=== PATIENT | female | born 1990 | race Caucasian/White ===

== ENCOUNTER → 2017-04-27 | Outpatient (CLI) | payer OTHER ==
[2017-04-27 15:09] LABS: BASO % 0.4 % (0.0-1.0); EOS # 0.1 K/mm3 (0.0-0.50); EOS % 1.2 % (0.0-3.0); LARGE UNSTAINED CELL # 0.1 K/mm3 (0.0-0.4); LARGE UNSTAINED CELL % 1.7 % (0.0-4.0); LYMPH # 2.6 K/mm3 (1.5-6.5); LYMPH % 46.8 % (24.0-44.0); MEAN CORPUSCULAR HEMOGLOBIN 28.9 pg (27.0-33.0); MEAN CORPUSCULAR HGB CONC 34.9 g/dl (32.0-36.5); MEAN CORPUSCULAR VOLUME 83.1 fl (80.0-96.0); MONO # 0.4 K/mm3 (0.0-0.8); MONO % 6.8 % (0.0-5.0); NEUTROPHILS # 2.3 K/mm3 (1.8-7.7); PLATELET COUNT, AUTOMATED 333 k/mm3 (150-450); RED CELL DISTRIBUTION WIDTH 12.6 % (11.5-14.5); WHITE BLOOD COUNT 5.3 K/mm3 (4.0-10.0)
[2017-04-27 15:37] LABS: LUTEINIZING HORMONE 17.9 mIU/mL
[2017-04-27 15:38] LABS: ALBUMIN 3.8 GM/DL (3.2-5.2); ALBUMIN/GLOBULIN RATIO 1.12 (1.00-1.93); ALKALINE PHOSPHATASE 78 U/L (45-117); ALT/SGPT 22 U/L (12-78); AST/SGOT 15 U/L (15-37); BILIRUBIN,DIRECT < 0.1 MG/DL (0.0-0.2); BILIRUBIN,TOTAL 0.4 MG/DL (0.2-1.0); CHOLESTEROL LEVEL 144 MG/DL (<200); FOLLICLE STIMULATING HORMONE 9.1 mIU/mL; TOTAL PROTEIN 7.2 GM/DL (6.4-8.2); TRIGLYCERIDES LEVEL 65 MG/DL (<150)
[2017-04-30 00:06] LABS: FREE ANDROGEN INDEX 3.3 (0.4-8.4); SEX HORM BINDING GLOB 64.4 nmol/L (24.6-122.0)
== END ==
LOC: M WUC 10:14
PROVIDERS: ATTEND Nurse Practitioner Adult Health
DX: N92.6 Irregular menstruation, unspecified (principal)

== ENCOUNTER → 2017-06-09 | Outpatient (REF) | payer OTHER ==
[2017-06-09 18:29] LABS: FREE T4 1.12 NG/DL (0.76-1.46)
== END ==
LOC: M SFHCLERA 10:58
PROVIDERS: ATTEND Family Medicine
DX: E05.90 Thyrotoxicosis, unspecified without thyrotoxic crisis or storm (principal)

== ENCOUNTER → 2017-06-09 | Outpatient (CLI) | payer BC, OTHER ==
--- NOTE | 2017-06-09 13:33 | REP ---
Thyroid ultrasound: The thyroid is normal size. The right lobe measures 4.0 x 1.3 x 1.57 inches. The left lobe measures 3.8 x 1.4 x 0.9 cm. The isthmus measures 2.8 mm in thickness. There is a 0.8 cm solid nodule at the mid pole of the right thyroid lobe. There is a 0.5 cm solid nodule in the upper pole of the left thyroid lobe. Impression: There is a solid nodule in each lobe of the thyroid. Consider radionuclide thyroid scan to determine if either of these nodules is hyperfunctioning. Signed by Timmy Salinas MD 06/09/2017 01:25 P
== END ==
LOC: M LRY 11:02
PROVIDERS: ATTEND Family Medicine
DX: E05.90 Thyrotoxicosis, unspecified without thyrotoxic crisis or storm (principal)

== ENCOUNTER → 2017-06-26 | Outpatient (CLI) | payer BC, OTHER ==
[2017-06-26 09:55] LABS: FREE T4 0.96 NG/DL (0.76-1.46)
[2017-06-26 11:45] LABS: THYROID PEROXIDASE ANTIBODY 33.5 U/ML (<60.0)
== END ==
LOC: M WUC 08:11
PROVIDERS: ATTEND Internal Medicine Endocrinology, Diabetes & Metabolism
DX: E04.1 Nontoxic single thyroid nodule (principal)

== ENCOUNTER → 2017-06-26 | Outpatient (CLI) | payer BC, OTHER ==
[2017-06-26 11:45] LABS: PROGESTERONE 32.3 NG/ML
[2017-06-26 11:57] LABS: ESTRADIOL 510.9 PG/ML
== END ==
LOC: M WUC 08:15
PROVIDERS: ATTEND Obstetrics & Gynecology Reproductive Endocrinology
DX: N97.9 Female infertility, unspecified (principal)

== ENCOUNTER → 2018-06-28 | Outpatient (CLI) | payer BC, OTHER ==
[2018-06-28 20:43] LABS: FREE T4 0.95 NG/DL (0.76-1.46)
== END ==
LOC: M LRY 16:07
DX: R94.6 Abnormal results of thyroid function studies (principal)
CPT/HCPCS: 84443

== ENCOUNTER → 2019-03-12 | Outpatient (CLI) | payer OTHER, BC ==
[2019-03-12 13:09] LABS: HEMATOCRIT 36.7 % (36.0-47.0); HEMOGLOBIN 10.9 g/dl (12.0-15.5); MEAN CORPUSCULAR HEMOGLOBIN 21.9 pg (27.0-33.0); MEAN CORPUSCULAR HGB CONC 29.7 g/dl (32.0-36.5); MEAN CORPUSCULAR VOLUME 73.7 fl (80.0-96.0); PLATELET COUNT, AUTOMATED 337 10^3/uL (150-450); RED BLOOD COUNT 4.98 10^6/uL (4.00-5.40); WHITE BLOOD COUNT 6.5 10^3/uL (4.0-10.0)
[2019-03-12 13:22] LABS: ALBUMIN 3.6 GM/DL (3.2-5.2); ALT/SGPT 17 U/L (12-78); BILIRUBIN,TOTAL 0.3 MG/DL (0.2-1.0); BLOOD UREA NITROGEN 9 MG/DL (7-18); CALCIUM LEVEL 8.6 MG/DL (8.5-10.1); CARBON DIOXIDE LEVEL 26 MEQ/L (21-32); CHLORIDE LEVEL 107 MEQ/L (98-107); CREATININE FOR GFR 0.65 MG/DL (0.55-1.30); GLOMERULAR FILTRATION RATE > 60.0 (>60); GLUCOSE, FASTING 104 MG/DL (70-100); HCG, SERUM QUANTITATIVE < 1.0 MIU/ML; POTASSIUM SERUM 3.8 MEQ/L (3.5-5.1); SODIUM LEVEL 141 MEQ/L (136-145); THYROID STIMULATING HORMONE 0.946 uIU/ML (0.358-3.740); TOTAL PROTEIN 7.2 GM/DL (6.4-8.2)
[2019-03-12 13:26] LABS: HEMOGLOBIN A1c 5.9 %
[2019-03-14 10:35] LABS: TOTAL 25(OH) VITAMIN D 16.9 NG/ML (30.0-100.0)
[2019-03-14 10:36] LABS: PROGESTERONE 0.21 NG/ML; TESTOSTERONE 18 NG/DL (14-76)
[2019-03-14 10:46] LABS: RUBELLA IgG QUALITATIVE IMMUNE (IMMUNE)
[2019-03-14 11:15] LABS: HEPATITIS C VIRUS ABY INDEX 0.1 INDEX (<0.8)
[2019-03-14 11:48] LABS: LUTEINIZING HORMONE 5.6 mIU/mL; PROLACTIN 6.2 NG/ML
[2019-03-14 11:49] LABS: ESTRADIOL 39.9 PG/ML
[2019-03-14 12:01] LABS: HEPATITIS B SURFACE ANTIGEN NEGATIVE (NEGATIVE)
[2019-03-14 12:29] LABS: HIV 1&2 SCREEN CENTAUR NEGATIVE (NEGATIVE)
[2019-03-15 14:24] LABS: HERPES ZOSTER, VARICELLA IgM 1.29 index (0.00-0.90)
== END ==
LOC: M WUC 10:49
PROVIDERS: ATTEND Obstetrics & Gynecology Reproductive Endocrinology
DX: E28.9 Ovarian dysfunction, unspecified (principal)

== ENCOUNTER → 2019-05-30 | Outpatient (CLI) | payer OTHER, BC ==
[2019-05-30 14:02] LABS: THYROID STIMULATING HORMONE 1.13 uIU/ML (0.358-3.740)
[2019-05-30 14:09] LABS: ESTRADIOL 302.5 PG/ML
[2019-05-30 14:29] LABS: PROGESTERONE 51.59 NG/ML
== END ==
LOC: M WUC 12:17
PROVIDERS: ATTEND Obstetrics & Gynecology Reproductive Endocrinology
DX: E28.9 Ovarian dysfunction, unspecified (principal)

== ENCOUNTER → 2019-06-06 | Outpatient (CLI) | payer OTHER, BC ==
[2019-06-06 20:30] LABS: PROGESTERONE 45.21 NG/ML
== END ==
LOC: M WUC 15:59
PROVIDERS: ATTEND Obstetrics & Gynecology Reproductive Endocrinology
DX: E28.9 Ovarian dysfunction, unspecified (principal)

== ENCOUNTER → 2019-06-08 | Outpatient (CLI) | payer OTHER, BC ==
[2019-06-08 13:04] LABS: ESTRADIOL 322.4 PG/ML; PROGESTERONE 41.19 NG/ML; THYROID STIMULATING HORMONE 1.27 uIU/ML (0.358-3.740)
== END ==
LOC: M WUC 10:47
PROVIDERS: ATTEND Obstetrics & Gynecology Reproductive Endocrinology
DX: E28.9 Ovarian dysfunction, unspecified (principal)

== ENCOUNTER → 2019-06-15 | Outpatient (CLI) | payer BC, OTHER ==
[2019-06-15 16:28] LABS: ESTRADIOL 260.5 PG/ML; PROGESTERONE 43.41 NG/ML; THYROID STIMULATING HORMONE 1.02 uIU/ML (0.358-3.740)
--- NOTE | 2019-06-15 17:20 | REP ---
Transvaginal obstetric sonography: History: Evaluate intrauterine . Findings: Transvaginal scanning demonstrates a single intrauterine gestational sac with yolk sac. No embryonic pole is visualized. By mean sac size diameter of 12 mm, this would correspond with a 4-jrzn-0-day gestation. No extrauterine abnormalities observed. Uterine dimensions are 8.0 x 4.5 x 5.9 cm. Right ovary measures 3.1 x 1.0 x 1.8 cm and has a normal appearance. The left ovary measures 2.2 x 2.2 x 2.0 cm. It has a normal appearance. Impression: There is a single intrauterine gestational sac containing a yolk sac but no observable embryonic pole. 4-zhvf-6-day estimate based on mean sac size diameter, 12 mm. No adnexal abnormality noted. Electronically Signed by Martin Daly MD 06/16/2019 07:55 A
== END ==
LOC: M LAB 15:07
PROVIDERS: ATTEND Obstetrics & Gynecology Reproductive Endocrinology
DX: Z32.01 Encounter for pregnancy test, result positive (principal); Z3A.01 Less than 8 weeks gestation of pregnancy

== ENCOUNTER → 2019-06-22 | Outpatient (CLI) | payer BC, OTHER ==
--- NOTE | 2019-06-22 08:59 | REP ---
First trimester obstetric sonography: History: after positive results. Supervision of . Findings: Transvaginal scanning demonstrates a living single intrauterine gestation. The embryonic pole measures 6 mm in crown-rump length. This corresponds with a gestational age estimate of 6 weeks 3 days. heart rate is recorded at 130 beats per minute. No subchorionic hemorrhage is seen. There is a 0.8 cm hypoechoic cystic area in the maternal left ovary consistent with corpus luteum. Impression: Viable single intrauterine gestation at 6 weeks 3 days by crown-rump length. CUCO by sonography February 12, 2020. No complication is identified. Electronically Signed by Martin Daly MD 06/22/2019 01:43 P
[2019-06-22 09:57] LABS: ESTRADIOL 369.5 PG/ML; PROGESTERONE 17.48 NG/ML; THYROID STIMULATING HORMONE 2.34 uIU/ML (0.358-3.740)
== END ==
LOC: M RAD 07:11
PROVIDERS: ATTEND Obstetrics & Gynecology Reproductive Endocrinology
DX: Z32.01 Encounter for pregnancy test, result positive (principal); Z3A.01 Less than 8 weeks gestation of pregnancy

== ENCOUNTER → 2019-06-29 | Outpatient (CLI) | payer BC, OTHER ==
[2019-06-29 08:29] LABS: THYROID STIMULATING HORMONE 0.564 uIU/ML (0.358-3.740)
[2019-06-29 09:07] LABS: PROGESTERONE 19.64 NG/ML
[2019-06-29 09:08] LABS: ESTRADIOL 251.9 PG/ML
--- NOTE | 2019-06-29 09:15 | REP ---
TRANSVAGINAL PELVIC ULTRASOUND: Transvaginal pelvic ultrasound performed. There is a single living intrauterine gestation. The estimated gestational age based on today's ultrasound is 7 weeks 5 days based on crown-rump length of 14 mm, EDC 02/10/2020. heart rate 155 beats per minute. There is no subchorionic hemorrhage. Complex cystic structure of the left ovary probably represents a corpus luteum, 8 mm in diameter. Ovaries otherwise appear unremarkable with no torsion. Electronically Signed by Timmy Gonzalez MD 06/29/2019 02:18 P
== END ==
LOC: M RAD 07:12
PROVIDERS: ATTEND Obstetrics & Gynecology Reproductive Endocrinology
DX: O09.01 Supervision of pregnancy with history of infertility, first trimester (principal); Z3A.01 Less than 8 weeks gestation of pregnancy

== ENCOUNTER → 2019-07-06 | Outpatient (CLI) | payer BC, OTHER ==
[2019-07-06 08:26] LABS: THYROID STIMULATING HORMONE 0.484 uIU/ML (0.358-3.740)
--- NOTE | 2019-07-06 08:30 | REP ---
Clinical: Dating and viability. Technique: Transabdominal first trimester obstetrical ultrasound with color Doppler evaluation. Findings: Single live early intrauterine identified. Gestational sac with yolk sac and pole noted. CRL of 21 mm corresponds to 8 weeks 5 days gestational age with estimated date of delivery 02/10/2020. heart rate equals 173 beats per minute. No gross abnormalities are identified. Uterus, maternal ovaries and pelvis are unremarkable. Impression: 1. Single live early intrauterine at 8 weeks 5 days gestational age. 2. Complete anatomical assessment should be performed at 19-20 weeks. Electronically Signed by Paras Stephenson MD 07/06/2019 08:21 A
[2019-07-06 09:23] LABS: PROGESTERONE 18.77 NG/ML
== END ==
LOC: M RAD 07:03
PROVIDERS: ATTEND Obstetrics & Gynecology Reproductive Endocrinology
DX: Z32.01 Encounter for pregnancy test, result positive (principal); Z3A.08 8 weeks gestation of pregnancy; Z36.89 Encounter for other specified antenatal screening

== ENCOUNTER → 2019-07-13 | Outpatient (CLI) | payer BC, OTHER ==
--- NOTE | 2019-07-13 08:31 | REP ---
Emergency first trimester obstetric sonography: History: Dating and viability. Supervision of . Findings: Transabdominal scanning demonstrates a single living intrauterine gestation. Embryonic pole is 31 mm in crown-rump length. This corresponds with a 9 week 6 day gestational age estimate. heart rate is recorded at 173 beats per minute. No subchorionic hemorrhage is seen. No gross anomaly is noted. Impression: Viable single intrauterine gestation at 9 weeks 6 days by crown-rump length. CUCO by sonography February 09, 2020. No complication is identified. Electronically Signed by Martin Daly MD 07/13/2019 10:21 A
[2019-07-13 09:35] LABS: ESTRADIOL 627.2 PG/ML; PROGESTERONE 26.64 NG/ML; THYROID STIMULATING HORMONE 0.465 uIU/ML (0.358-3.740)
== END ==
LOC: M RAD 07:07
PROVIDERS: ATTEND Obstetrics & Gynecology Reproductive Endocrinology
DX: Z32.01 Encounter for pregnancy test, result positive (principal); Z3A.09 9 weeks gestation of pregnancy

== ENCOUNTER → 2019-07-22 | Outpatient (CLI) | payer BC, OTHER ==
[2019-07-22 18:08] LABS: BASO % 0.5 % (0.0-1.0); EOS # 0.1 10^3/uL (0.0-0.5); EOS % 0.9 % (0.0-3.0); HEMOGLOBIN 11.2 g/dl (12.0-15.5); LYMPH # 2.8 10^3/uL (1.5-5.0); LYMPH % 32.6 % (24.0-44.0); MEAN CORPUSCULAR HGB CONC 30.3 g/dl (32.0-36.5); MEAN CORPUSCULAR VOLUME 72.5 fl (80.0-96.0); MONO # 0.8 10^3/uL (0.0-0.8); MONO % 9.7 % (0.0-5.0); NEUTROPHILS # 4.8 10^3/uL (1.5-8.5); NEUTROPHILS % 56.1 % (36.0-66.0); PLATELET COUNT, AUTOMATED 351 10^3/uL (150-450); WHITE BLOOD COUNT 8.5 10^3/uL (4.0-10.0)
[2019-07-22 19:11] LABS: CHLAMYDIA DNA AMPLIFICATION NEGATIVE (NEGATIVE); GC DNA AMPLIFICATION NEGATIVE (NEGATIVE)
[2019-07-25 11:26] LABS: HEPATITIS C VIRUS ABY INDEX 0.2 INDEX (<0.8); HIV 1&2 SCREEN CENTAUR NEGATIVE (NEGATIVE); RUBELLA IgG QUALITATIVE IMMUNE (IMMUNE)
== END ==
LOC: M SMT 11:28
PROVIDERS: ATTEND Advanced Practice Midwife
DX: Z34.81 Encounter for supervision of other normal pregnancy, first trimester (principal); Z36.89 Encounter for other specified antenatal screening

== ENCOUNTER → 2019-07-29 | Outpatient (CLI) | payer OTHER, BC ==
[2019-07-29 17:07] LABS: FREE T4 1.14 NG/DL (0.76-1.46); THYROID STIMULATING HORMONE 0.557 uIU/ML (0.358-3.740)
== END ==
LOC: M WUC 11:40
PROVIDERS: ATTEND Internal Medicine Endocrinology, Diabetes & Metabolism
DX: R94.6 Abnormal results of thyroid function studies (principal)

== ENCOUNTER → 2019-08-26 | Outpatient (REF) | payer OTHER | LOC: M SFHCWAGY 14:04 | PROVIDERS: ATTEND Advanced Practice Midwife | DX: O09.812 Supervision of pregnancy resulting from assisted reproductive technology, second trimester (principal) ==

== ENCOUNTER → 2019-09-20 | Outpatient (CLI) | payer BC, OTHER ==
--- NOTE | 2019-09-21 04:33 | REP ---
Clinical: Anatomical evaluation. Comparison: 07/13/2019 . Findings: Examination demonstrates a single live intrauterine in transverse (head to maternal right) presentation. motion is identified by technologist. Placenta is noted anterior and grade I without evidence for placenta previa or abruption. Amniotic fluid volume is normal. Cervix measures 4.4 cm in length and appears closed. No evidence for nuchal cord. Gestational age by LMP 19 weeks 3 days with CUCO 02/11/2020 . Gestational age by current measurements 19 weeks 6 days with CUCO 02/08/2020 . FHR equals the 140 beats per minute. BPD 4.7 cm 20 weeks 2 days HC 17.2 cm 19 weeks 5 days AC 14.2 cm 19 weeks 4 days FL 3.0 cm 19 weeks 3 days HL 3.1 cm 20 weeks 1 day HC/AC ratio 1.21 Estimated weight 298 grams ( 51st percentile). Anatomical assessment demonstrates normal structures including cranium, choroid plexus, cavum, cerebellum/posterior fossa, facial features, lungs, four-chamber heart/ventricular outflow tracts, diaphragm, stomach, cord insertion/three-vessel cord, kidneys/bladder, and extremities. Impression: 1. Single live intrauterine in transverse lie demonstrating appropriate interval growth. 2. Limited evaluation of the spine due to positioning. Remainder of the anatomical assessment is complete and normal. Electronically Signed by Paras Stephenson MD 09/21/2019 04:24 A
== END ==
LOC: M RAD 11:32
PROVIDERS: ATTEND Advanced Practice Midwife
DX: O09.812 Supervision of pregnancy resulting from assisted reproductive technology, second trimester (principal); O32.2XX0 Maternal care for transverse and oblique lie, not applicable or unspecified; Z3A.19 19 weeks gestation of pregnancy

== ENCOUNTER → 2019-10-06 | Outpatient (CLI) | payer BC, OTHER ==
[~2019-10-06] MED LIST: METF500T13 PO; MULTTAB20 PO
--- NOTE | 2019-10-07 04:15 | REP ---
Clinical: Anatomical evaluation. Comparison: 09/20/2019 . Findings: Examination demonstrates a single live intrauterine in variable presentation. motion is identified by technologist. Placenta is noted anterior and grade I without evidence for placenta previa or abruption. Amniotic fluid volume is normal. Cervix measures 3.8 cm in length and appears closed. No evidence for nuchal cord. Gestational age by LMP 21 weeks 5 days with CUCO 02/11/2020 . Gestational age by current measurements 21 weeks 4 days with CUCO is 02/12/2020 . FHR equals 147 beats per minute. Estimated weight 476 grams ( 57 percentile). Anatomical assessment demonstrates normal structures including cranium, facial features, lungs, diaphragm, stomach, cord insertion/three-vessel cord, kidneys/bladder, spine, and extremities. Impression: Single live intrauterine in variable presentation demonstrating appropriate interval growth. 2. In conjunction with prior examination anatomical assessment is complete and normal.
== END ==
LOC: M WHC 10:58
PROVIDERS: ATTEND Advanced Practice Midwife
DX: O09.812 Supervision of pregnancy resulting from assisted reproductive technology, second trimester (principal); Z3A.21 21 weeks gestation of pregnancy

== ENCOUNTER → 2019-10-25 | Outpatient (REF) | payer OTHER ==
[~2019-10-25] MED LIST changes: +CYAN1000VL IM; +[UNRECOGNIZED DRUG - OTHER]; +[UNRECOGNIZED DRUG - OTHER] SC
[2019-10-25 14:41] LABS: INFLUENZA A AMPLIFICATION NEGATIVE (NEGATIVE); INFLUENZA B AMPLIFICATION POSITIVE (NEGATIVE)
== END ==
LOC: M LAB REF 13:41
PROVIDERS: ATTEND Physician Assistant
DX: J11.1 Influenza due to unidentified influenza virus with other respiratory manifestations (principal)

== ENCOUNTER → 2019-12-13 | Outpatient (REF) | payer OTHER ==
[2019-12-13 13:27] LABS: HEMATOCRIT 35.6 % (36.0-47.0); HEMOGLOBIN 11.3 g/dl (12.0-15.5); MEAN CORPUSCULAR HEMOGLOBIN 25.4 pg (27.0-33.0); MEAN CORPUSCULAR HGB CONC 31.7 g/dl (32.0-36.5); PLATELET COUNT, AUTOMATED 291 10^3/uL (150-450); RED BLOOD COUNT 4.45 10^6/uL (4.00-5.40); WHITE BLOOD COUNT 8.1 10^3/uL (4.0-10.0)
== END ==
LOC: M PLALAB 08:50
PROVIDERS: ATTEND Advanced Practice Midwife
DX: O09.812 Supervision of pregnancy resulting from assisted reproductive technology, second trimester (principal)

== ENCOUNTER → 2019-12-19 | Outpatient (CLI) | payer BC, OTHER | LOC: M LAB 07:03 | PROVIDERS: ATTEND Advanced Practice Midwife | DX: O09.812 Supervision of pregnancy resulting from assisted reproductive technology, second trimester (principal); Z3A.00 Weeks of gestation of pregnancy not specified ==

== ENCOUNTER → 2019-12-29 | Outpatient (CLI) | payer BC ==
--- NOTE | 2019-12-29 18:19 | REP ---
Clinical: History of gestational diabetes. Comparison: 10/06/2019 . Findings: Examination demonstrates a single live intrauterine in cephalic presentation. motion is identified by technologist. Placenta is noted anterior and grade I I without evidence for placenta previa or abruption. Amniotic fluid volume is normal. Cervix measures 3.2 cm in length and appears closed. No evidence for nuchal cord. Gestational age by LMP 33 weeks 5 days with CUCO 02/11/2020 . Gestational age by current measurements 33 weeks 4 days with CUCO 02/12/2020 . FHR equals 134 beats per minute. Estimated weight by current biometrical measurements 2297 grams ( 48th percentile). Amniotic fluid index: 9.1 cm Impression: Single live advanced gestation in cephalic presentation demonstrating appropriate estimated weight and interval growth. No gross abnormalities are identified.
== END ==
LOC: M WHC 14:22
PROVIDERS: ATTEND Advanced Practice Midwife
DX: O24.410 Gestational diabetes mellitus in pregnancy, diet controlled (principal); Z3A.33 33 weeks gestation of pregnancy

== ENCOUNTER → 2020-01-12 | Outpatient (REF) | payer OTHER | LOC: M PLALAB 15:00 | PROVIDERS: ATTEND Advanced Practice Midwife | DX: O09.813 Supervision of pregnancy resulting from assisted reproductive technology, third trimester (principal); Z53.9 Procedure and treatment not carried out, unspecified reason; Z3A.00 Weeks of gestation of pregnancy not specified ==

== ENCOUNTER → 2020-01-13 | Outpatient (REF) | payer OTHER | LOC: M SFHCWAGY 16:52 | PROVIDERS: ATTEND Advanced Practice Midwife | DX: O09.813 Supervision of pregnancy resulting from assisted reproductive technology, third trimester (principal); Z36.89 Encounter for other specified antenatal screening; Z3A.00 Weeks of gestation of pregnancy not specified ==

== ENCOUNTER → 2020-01-19 | Outpatient (REF) | payer OTHER | LOC: M PLALAB 13:40 | PROVIDERS: ATTEND Advanced Practice Midwife | DX: O09.813 Supervision of pregnancy resulting from assisted reproductive technology, third trimester (principal) ==

== ENCOUNTER → 2020-01-19 | Outpatient (CLI) | payer BC ==
--- NOTE | 2020-01-20 02:55 | REP ---
Clinical: Growth evaluation Comparison: 12/29/2019 Findings: Examination demonstrates a single live intrauterine in cephalic presentation. motion is identified by technologist. Placenta is noted anterior and grade I I without evidence for placenta previa or abruption. Amniotic fluid volume is normal. Cervix measures 3.3 cm in length and appears closed. No evidence for nuchal cord. Gestational age by LMP 36 weeks 5 days. Gestational age by current measurements 35 weeks 5 days. FHR equals 135 beats per minute. Amniotic fluid index: 14.9 cm Estimated weight by current biometrical measurements 2772 grams ( 38th percentile). Impression: Single live advanced gestation in cephalic presentation. Appropriate interval growth noted.
== END ==
LOC: M WHC 13:45
PROVIDERS: ATTEND Advanced Practice Midwife
DX: O24.415 Gestational diabetes mellitus in pregnancy, controlled by oral hypoglycemic drugs (principal)

== ENCOUNTER 2020-02-06 07:38 | Inpatient (IN) | payer BC, OTHER ==
[~2020-02-06] VITALS: Ht 157.5 cm; Wt 81.1 kg
[2020-02-06] VITALS (21 sets, daily range): BP systolic 90–129; BP diastolic 50–84
[2020-02-06] MEDS ORDERED: PENICILLIN G POTASSIUM IV 5 MU in D5W MINI-BAG PLUS 100 ML IV STA ×2 (08:16→09:22)
[2020-02-06] MEDS ORDERED: LACTATED RINGER'S 1000 ML IV STA (08:16)
[2020-02-06] MEDS ORDERED: miSOPROStol 50 MCG 1/2 TAB (S0191) PO SCH (08:30)
[2020-02-06] MEDS ORDERED: **PENDING PCN ENTRY XX SCH (09:00)
[2020-02-06] MEDS ORDERED: PENICILLIN G POTASSIUM 5 MU VIAL As Ordered ONE (09:14)
[2020-02-06 09:31] LABS: HEMATOCRIT 31.3 % (36.0-47.0); HEMOGLOBIN 10.2 g/dl (12.0-15.5); MEAN CORPUSCULAR HEMOGLOBIN 25.3 pg (27.0-33.0); MEAN CORPUSCULAR HGB CONC 32.6 g/dl (32.0-36.5); MEAN CORPUSCULAR VOLUME 77.7 fl (80.0-96.0); PLATELET COUNT, AUTOMATED 224 10^3/uL (150-450); RED BLOOD COUNT 4.03 10^6/uL (4.00-5.40); WHITE BLOOD COUNT 7.2 10^3/uL (4.0-10.0)
[2020-02-06] MEDS ORDERED: PENICILLIN G POTASSIUM IV 2.5 MU in IV 1 EA IV SCH (12:30)
--- NOTE | 2020-02-06 12:46 | HPE ---
DATE OF ADMISSION: 02/06/2020 HISTORY OF PRESENT ILLNESS: Kristyn is a 29-year-old, 2, para 1-0-0-1, at 39-2/7 weeks gestation, expected date of confinement (EDC) of 02/11/2020 based on first trimester ultrasound. She presents to labor and delivery today for induction of labor due to A2 gestational diabetes. She denies any regular painful contractions. Reports active fetus. Denies vaginal bleeding and leakage of fluid. care was initiated at [facility] in the first trimester. course complicated by A2 gestational diabetes, IVF transfer, a brother with hemophilia, polycystic ovarian syndrome, microcytic anemia due to iron deficiency, B12 deficiency and fetus has a possible VSD and will require echocardiogram after delivery. OBSTETRICAL HISTORY: February 2018, 39 weeks gestation, 6 pounds and 5 ounces, female, vaginal delivery, following induction of labor. OBSTETRIC LABS: B+. Antibody screen negative. RPR negative. Hepatitis B negative. Hepatitis C negative. HIV negative. Urine culture no growth. Gonorrhea and chlamydia negative. Rubella immune. Gestational diabetic screening elevated at 150. GBS positive. PAST MEDICAL HISTORY: Hyperthyroid during fertility which resolved. Polycystic ovarian syndrome. SURGERIES: Egg retrieval. FAMILY HISTORY: Breast cancer, colon cancer, diabetes, hemophilia, deep vein thrombosis (DVT), Crohn disease. SOCIAL HISTORY: The patient is . She is a nonsmoker. She denies alcohol or drug use. No history of any sexually transmitted infections. She denies history of abuse - physical, sexual and emotional. ALLERGIES: No known drug allergies. OBJECTIVE: Temperature 97.8, pulse 71, respirations 16, blood pressure (BP) is 105/70. She is alert and oriented x3, smiling and talkative. heart is 115 with moderate variability, positive accelerations, negative decelerations. There is no pattern of contractions. Abdomen is gravid, cephalic presentation. Estimated weight 3000 grams. Sterile Vaginal Exam: 1 cm dilated, 50% effaced, -2 station, posterior and soft. No show with the exam. ASSESSMENT: Intrauterine at 39-2/7 weeks. heart rate is category one. PLAN: Admit the patient to labor and delivery. Routine labs. Out of bed ad lauro. Regular diet at this time. IV fluid bolus, then saline lock. I plan to start misoprostol 50 mcg by mouth every 4 hours for cervical ripening. Then likely will start IV Pitocin. The patient desires an epidural for her labor coping. Risks, benefits and alternatives have been reviewed. All of the patient and her 's questions have been answered. She has been verbally consented for emergency surgery and blood products if necessary. I do anticipate cervical ripening.
[2020-02-06] MEDS ORDERED: TUMS500C PO (13:14)
[2020-02-06] MEDS: PENICILLIN G POTASSIUM IV 2.5 MU in IV 1 EA IV SCH ×3 (13:50→21:46)
[2020-02-06] MEDS: miSOPROStol 50 MCG 1/2 TAB (S0191) PO SCH ×2 (14:16→17:30)
[2020-02-06] MEDS ORDERED: LR 1,000 ML IV SCH (18:17)
[2020-02-06] MEDS ORDERED: OXYTOCIN 30 UNITS IN 0.9% NaCl 500ML IV BAG (J2590) As Ordered ONE (18:18)
[2020-02-06] MEDS ORDERED: OXYTOCIN DRIP 30 UNITS in IV 1 EA IV SCH (18:30)
[2020-02-07] VITALS (30 sets, daily range): BP systolic 90–160; BP diastolic 47–71
[2020-02-07] MEDS ORDERED: FENTANYL 2MCG/ML ROPIVACAINE 0.2% IN 0.9% NACL 100ML IVBAG As Ordered ONE (01:15)
[2020-02-07] MEDS: PENICILLIN G POTASSIUM IV 2.5 MU in IV 1 EA IV SCH (01:35)
[2020-02-07] MEDS ORDERED: ePHEDrine SULFATE 25 MG/5 ML(5MG/ML) SYRINGE As Ordered ONE (02:49)
[2020-02-07] MEDS ORDERED: ONDANSETRON 4MG/2ML VIAL IV PRN (03:00)
[2020-02-07] MEDS ORDERED: EPIDURAL COMMENT XX SCH (03:00)
[2020-02-07] MEDS ORDERED: REFRIGERATOR IV KEYS XX PRN (03:00)
[2020-02-07] MEDS ORDERED: LACTATED RINGER'S 1000 ML IV PRN (03:00)
[2020-02-07] MEDS ORDERED: NALOXONE INJ 0.4MG/1ML VIAL (J2310 PER 1MG) IV PRN (03:00)
[2020-02-07] MEDS ORDERED: diphenhydrAMINE 50MG/ML VIAL (J1200) IV PRN (03:00)
[2020-02-07] MEDS ORDERED: EPIDURAL/PCA KEYS XX PRN (03:00)
[2020-02-07] MEDS ORDERED: FENTANYL/ROPIVACAINE/NACL BAG 100 ML EPIDURAL SCH (03:00)
[2020-02-07] MEDS ORDERED: ePHEDrine SULFATE 25 MG/5 ML(5MG/ML) SYRINGE IV PRN (03:00)
[2020-02-07 04:39] LABS: CORD GAS ABE V -7.3; CORD GAS HCO3 V 19.2 MEQ/L; CORD GAS O2 SAT V 62.2 %; CORD GAS PH V 7.277 UNITS; CORD GAS PO2 V 29.5 mmHg; CORD GAS SBC V 17.8 MEQ/L; CORD GAS TCO2 V 20.4 MEQ/L
[2020-02-07 04:46] LABS: CORD GAS ABE A -9.3; CORD GAS HCO3 A 20.1 MEQ/L; CORD GAS O2 SAT A 37.7 %; CORD GAS PCO2 A 58.2 mmHg; CORD GAS PH A 7.157 UNITS; CORD GAS SBC A 15.9 MEQ/L; CORD GAS TCO2 A 21.9 MEQ/L
[2020-02-07] MEDS ORDERED: OXYTOCIN DRIP 30 UNITS in IV 1 EA IV SCH (05:01)
[2020-02-07] MEDS ORDERED: MEASLES,MUMPS,RUBELLA VACCINE INJ (MMR-II) (90707) SC SCH (05:15)
[2020-02-07] MEDS ORDERED: ACETAMINOPHEN TAB 650MG DOSE (2X325MG) PO PRN (05:15)
[2020-02-07] MEDS ORDERED: ANUSOL HC CREAM 30GM TOP PRN (05:15)
[2020-02-07] MEDS ORDERED: RHOGAM 300 MCG (1500 IU) INJ (J2790) IM SCH (05:15)
[2020-02-07] MEDS ORDERED: DIBUCAINE 1% OINTMENT 30GM TOP PRN (05:15)
[2020-02-07] MEDS ORDERED: DOCUSATE SODIUM 100 MG CAP PO PRN (05:15)
[2020-02-07] MEDS ORDERED: IBUPROFEN 600 MG TAB PO PRN (05:15)
[2020-02-07] MEDS ORDERED: METHYLERGONOVINE MALEATE 0.2 MG TAB PO PRN (05:15)
[2020-02-07] MEDS ORDERED: ACETAMINOPHEN 500 MG TAB PO PRN (05:15)
[2020-02-07] MEDS: IBUPROFEN 800 MG TAB PO PRN ×2 (05:46→15:49)
[2020-02-07] MEDS: PRENATAL VITAMINS CHEWABLE TABLET PO SCH (08:14)
[2020-02-07] MEDS ORDERED: SLF 3 ML SYR IV PRN (10:00)
--- NOTE | 2020-02-07 12:15 | DN ---
DATE OF DELIVERY: 02/07/2020 DELIVER NOTE: Kristyn is a 29-year-old, 2, para 2-0-0-2 now, who is admitted to labor and delivery for induction of labor. Misoprostol and IV Pitocin was used and labor ensued. She utilized an epidural for labor coping. She reached full dilation at 0324 hours. She pushed to a normal spontaneous vaginal delivery of a live male in left occiput anterior (MOMO) position with restitution to occiput transverse (ROT) position at 0427 hours. There was no nuchal cord. There was a mild shoulder dystocia that was relieved with Ghazala maneuver. The shoulders delivered with gentle downward traction. The corpus immediately followed. Padroni male was placed on maternal abdomen crying and active. Mouth and nares were bulb suctioned. Cord was clamped times two and cut by the father of the baby under my direction. Cord blood was obtained. Cord gases were obtained. Arterial cord pH 7.157, base excess of -9.3. Venous cord pH 7.277, base excess of -7.3. Spontaneous expulsion of an intact placenta with three-vessel cord by Schultze mechanism was at 0435 hours. Uterine hemostasis achieved with IV Pitocin rapid infusion and uterine fundal massage. Estimated blood loss 400 mL. Perineum and vagina inspected and noted to have a first-degree midline laceration. The laceration repaired with #3-0 Vicryl Rapide in the usual fashion. Padroni male weighed 7 pounds 15 ounces (3590 grams), 9, 9. The mom is going to breastfeed her son and the family have named him Thuan. At the close of delivery, lap counts, needle counts and instrument counts were correct and verified. [facility]
[2020-02-07] MEDS: SLF 3 ML SYR IV SCH ×2 (15:53→21:51)
[2020-02-08] MEDS: SLF 3 ML SYR IV SCH (05:58)
[2020-02-08 06:00] VITALS: BP 105/66
[2020-02-08] MEDS: PRENATAL VITAMINS CHEWABLE TABLET PO SCH (09:00)
== END 2020-02-08 12:50 | disposition home or self-care (01) | DRG 560 ==
LOC: M LDI 07:38 → M OBS 02-07 06:27
PROVIDERS: ADMIT Advanced Practice Midwife; ATTEND Advanced Practice Midwife
PROC: 10E0XZZ Delivery of Products of Conception, External Approach (ICD-10-PCS; principal; 2020-02-07)
PROC: 0HQ9XZZ Repair Perineum Skin, External Approach (ICD-10-PCS; 2020-02-07)
DX: O99.284 Endocrine, nutritional and metabolic diseases complicating childbirth (principal); O24.419 Gestational diabetes mellitus in pregnancy, unspecified control; E28.2 Polycystic ovarian syndrome; Z37.0 Single live birth; Z3A.39 39 weeks gestation of pregnancy; O70.0 First degree perineal laceration during delivery

== ENCOUNTER → 2021-02-18 | Outpatient (CLI) | payer BC, OTHER ==
[~2021-02-18] MED LIST changes: +TUMS500C PO
[2021-02-18 14:38] LABS: FREE T4 0.96 NG/DL (0.76-1.46); THYROID STIMULATING HORMONE 1.36 uIU/ML (0.358-3.740)
== END ==
LOC: M LAB 11:50
PROVIDERS: ATTEND Internal Medicine Endocrinology, Diabetes & Metabolism
DX: D51.9 Vitamin B12 deficiency anemia, unspecified (principal); R94.6 Abnormal results of thyroid function studies

== ENCOUNTER → 2022-11-05 | Outpatient (REF) | payer BC, OTHER | LOC: M SFHCDERM 17:20 | PROVIDERS: ATTEND Dermatology | DX: D22.9 Melanocytic nevi, unspecified (principal) ==

== ENCOUNTER → 2025-06-06 | Outpatient (REF) | payer BC, OTHER | LOC: M LAB REF 15:35 | PROVIDERS: ATTEND Surgery | DX: L72.3 Sebaceous cyst (principal) ==